=== PATIENT | female | born 1960 | race Asian ===

== ENCOUNTER 2018-02-20 15:55 | Outpatient (CLI) | payer OTHER ==
--- NOTE | 2018-02-20 16:42 | Mammography Report ---
Screening mammogram: Routine views are obtained and compared to her prior exam in December 2014. There is an intermediate fibroglandular pattern generally symmetric distribution which is substantially the same. There is a lobulated nodule in the superior-lateral left breast which also has remained the same however on the current images there is a grouping of calcifications which appears to in part be related to this nodule but also extending beyond the nodule. In the right breast there is tear shaped density in the lateral breast not noted nor identified in the current lateral projection. No other findings. CAD used. Impression: New bilateral asymmetries. Recommendation: 1. Magnification views of left calcifications. 2. Additional compression imaging of the right breast asymmetry. BI-RADS CATEGORY: 0 = Needs additional imaging evaluation ACR BI-RADS MAMMOGRAPHIC CODES: 0 = Needs additional imaging evaluation; 1 = Negative; 2 = Benign; 3 = Probably benign; 4 = Suspicious; 5 = Malignant; 6 = Known biopsy-proven malignancy COMMENT: 1. Dense breast tissue, i.e., adenosis, fibrocystic changes, etc., may obscure an underlying neoplasm. 2. Approximately 10% of cancers are not detected with mammography. 3. A negative mammography report should not delay biopsy if a clinically suspicious mass is present.
== END 2018-02-20 15:56 | disposition home or self-care (01) ==
LOC: SPVWC 15:55
PROVIDERS: ATTEND Internal Medicine
DX: Z12.31 Encounter for screening mammogram for malignant neoplasm of breast (principal)
CPT/HCPCS: 77067

== ENCOUNTER 2018-03-27 08:46 | Outpatient (CLI) | payer OTHER ==
--- NOTE | 2018-03-27 11:05 | Mammography Report ---
BILATERAL DIGITAL DIAGNOSTIC MAMMOGRAM and RIGHT BREAST ULTRASOUND: 03/27/18 08:46:00 CLINICAL: Recall to evaluate a right asymmetry and left calcifications. COMPARISON:02/20/18 screening FINDINGS: Lateralmedial and spot magnification views were performed. A partially circumscribed right outer asymmetry persists on spot CC magnification views but lateral views are negative. The group of left central calcifications have benign morphology. There relatively large and coarse and are associated with a partially circumscribed mass. Ultrasound of the outer right breast was performed and demonstrated a benign cyst at 8 o'clock 8 cm from the nipple measuring 9 x 4 x 7 mm. It correlates with the mammographic density. In addition, moderate right retroareolar duct ectasia and a 5 mm benign cyst at 6 o'clock 3 cm from the nipple. IMPRESSION: Benign cysts and benign duct ectasia of the right breast. A benign left central breast mass with benign calcifications. BI-RADS CATEGORY: 2 - - Benign RECOMMENDATION: Routine mammographic screening in one year. ACR BI-RADS MAMMOGRAPHIC CODES: 0 = Needs additional imaging evaluation; 1 = Negative; 2 = Benign; 3 = Probably benign; 4 = Suspicious; 5 = Malignant; 6 = Known biopsy-proven malignancy COMMENT: 1. Dense breast tissue, i.e., adenosis, fibrocystic changes, etc., may obscure an underlying neoplasm. 2. Approximately 10% of cancers are not detected with mammography. 3. A negative mammography report should not delay biopsy if a clinically suspicious mass is present. COMMENT: Patient follow-up letters are generated via our [employer] application.
== END 2018-03-27 08:47 | disposition home or self-care (01) ==
LOC: SPVWC 08:46
PROVIDERS: ATTEND Internal Medicine
DX: N60.01 Solitary cyst of right breast (principal); N60.41 Mammary duct ectasia of right breast
CPT/HCPCS: 77066